=== PATIENT | female | born 1940 | race Asian ===

== ENCOUNTER 2021-03-13 10:55 | Observation (INO) | payer OTHER, MEDICAID ==
[2021-03-13 12:00] LABS: Hemoglobin 4.7 g/dL (12.0-16.0); Mean Corpuscular HGB CONC 31.3 g/dL (32.0-36.0); Mean Corpuscular Hemoglobin 28.8 pg (27.0-31.0); Mean Platelet Volume 6.3 fL (7.4-10.4); Platelet Count 67 thou/uL (130-400); RBC Distribution Width 20.8 % (11.5-14.5); Red Blood Cell (RBC) Count 1.65 mill/uL (4.20-5.40); White Blood Cell (WBC) Count 2.7 thou/uL (4.8-10.8)
[2021-03-13 12:12] LABS: ALT (SGPT) Less than 7 U/L (8-55); AST (SGOT) 15 U/L (5-34); Albumin 3.8 g/dL (3.4-4.8); Alkaline Phosphatase 63 U/L (40-110); Anion Gap 14 mmol/L (10-20); BUN (Urea Nitrogen) 39 mg/dL (9.8-20.1); Bilirubin, Total 0.7 mg/dL (0.2-1.2); Calc. Creatinine Clearance 0 mL/min (70-130); Calcium 9.2 mg/dL (7.8-10.44); Carbon Dioxide 23 mmol/L (23-31); Chloride 102 mmol/L (98-107); Globulin 3.2 g/dL (2.4-3.5); Glucose 157 mg/dL (83-110); Potassium 4.1 mmol/L (3.5-5.1); Sodium 135 mmol/L (136-145)
[2021-03-13 12:39] LABS: Anisocytosis MODERATE=16-30 cells (100X) (0-5/hpf); Band 9 % (5-11); Basophilic Stippling SLIGHT = 1-2 cells (100X) (None Seen); Differential Comment Blast-Like Cell(s); Eosinophils 1 % (0-10); Lymphocytes 34 % (21-51); MDiff Complete? YES; Metamyelocyte 9 % (0-0); Monocytes 7 % (0-10); Myelocyte 12 % (0-0); Neutrophil 26 % (42-75); Nucleated RBC 12 % (0); Ovalocytes SLIGHT = 2-5 cells (100X) (0-1/hpf); Platelet Morphology Comment Appears Decreased; Poikilocytosis SLIGHT = 6-15 cells (100X) (0-5/hpf); Polychromasia MODERATE = 3-4 cells (100X) (0-2/hpf); Promyelocytes 1 % (0-0); Reflex for Review?? YES; Schistocytes SLIGHT = 2-5 cells (100X) (0-1/hpf); Tear Drops SLIGHT = 2-5 cells (100X) (0-1/hpf)
[2021-03-13] MEDS ORDERED: Acetaminophen 325 MG TAB PO PRN (16:02)
[2021-03-13] MEDS ORDERED: Acetaminophen 650 MG Suppository PR PRN (16:02)
[2021-03-13] MEDS ORDERED: Ondansetron PF 4 MG/2 ML Vial IVP PRN (16:02)
[2021-03-13] MEDS ORDERED: Ondansetron ODT 4 MG TAB PO PRN (16:02)
[2021-03-13 16:21] VITALS: BMI 16.0
[2021-03-13] MEDS ORDERED: CARBIDOPA LEVO PO SCH (21:00)
[2021-03-14 06:33] LABS: Band 14 % (5-11); Differential Comment Blast-Like Cell(s); Hemoglobin 8.3 g/dL (12.0-16.0); Hypochromia SLIGHT = 6-15 cells (100X) (0-5/hpf); Lymphocytes 40 % (21-51); MDiff Complete? YES; Mean Corpuscular HGB CONC 33.1 g/dL (32.0-36.0); Mean Corpuscular Hemoglobin 31.2 pg (27.0-31.0); Mean Corpuscular Volume 94.1 fL (78.0-98.0); Metamyelocyte 3 % (0-0); Monocytes 7 % (0-10); Neutrophil 26 % (42-75); Nucleated RBC 7 % (0); Platelet Count 48 thou/uL (130-400); Platelet Morphology Comment Appears Decreased; Promyelocytes 6 % (0-0); Reactive Lymphocytes 1 % (0-10); Red Blood Cell (RBC) Count 2.65 mill/uL (4.20-5.40)
[2021-03-14 06:39] LABS: ALT (SGPT) Less than 7 U/L (8-55); AST (SGOT) 20 U/L (5-34); Albumin 3.3 g/dL (3.4-4.8); Alkaline Phosphatase 55 U/L (40-110); Anion Gap 14 mmol/L (10-20); BUN (Urea Nitrogen) 40 mg/dL (9.8-20.1); Bilirubin, Total 1.3 mg/dL (0.2-1.2); Calc. Creatinine Clearance 17 mL/min (70-130); Calcium 9.2 mg/dL (7.8-10.44); Carbon Dioxide 23 mmol/L (23-31); Chloride 106 mmol/L (98-107); Globulin 3.1 g/dL (2.4-3.5); Glucose 86 mg/dL (83-110); Potassium 4.7 mmol/L (3.5-5.1); Protein, Total 6.4 g/dL (5.8-8.1); Sodium 138 mmol/L (136-145)
[2021-03-14] MEDS ORDERED: ALPRAZolam 0.25 MG TAB PO SCH (09:00)
[2021-03-14] MEDS ORDERED: Famotidine 20 MG TAB PO SCH (09:00)
[2021-03-14 09:27] VITALS: TEMP 97.7
[2021-03-14 09:40] VITALS: BP 160/75
[2021-03-14 16:28] LABS: SARS-CoV-2 PCR by NAA Not Detected (NotDetected)
== END 2021-03-14 11:22 | disposition home or self-care (01) ==
LOC: ERS 10:55 → MSONC 13:14
PROVIDERS: ADMIT Student in an Organized Health Care Education/Training Program; ATTEND Student in an Organized Health Care Education/Training Program
DX: D61.818 Other pancytopenia (principal); C94.6 Myelodysplastic disease, not elsewhere classified; N17.9 Acute kidney failure, unspecified; G20 Parkinson's disease; K21.9 Gastro-esophageal reflux disease without esophagitis; I10 Essential (primary) hypertension; Z79.899 Other long term (current) drug therapy; Z20.822 Contact with and (suspected) exposure to COVID-19
CPT/HCPCS: 36430; 80053 ×2; 84484; 85025 ×2; 86850; 86900; 86901; 86920; 93005; 99285; G0378; P9016; U0003; U0005; 36415; 85060

== ENCOUNTER 2021-10-30 11:50 | Emergency (ER) | payer MEDICAID, OTHER ==
[2021-10-30 14:42] LABS: INR-International Normal Ratio 1.1; PTT 31.5 sec (22.9-36.1); Prothrombin Time 14.8 sec (12.0-14.7)
[2021-10-30 14:43] LABS: ALT (SGPT) Less than 7 U/L (8-55); AST (SGOT) 11 U/L (5-34); Alkaline Phosphatase 79 U/L (40-110); Anion Gap 15 mmol/L (10-20); BUN (Urea Nitrogen) 41 mg/dL (9.8-20.1); Bilirubin, Total 0.7 mg/dL (0.2-1.2); Calc. Creatinine Clearance 0 mL/min (70-130); Calcium 8.8 mg/dL (7.8-10.44); Carbon Dioxide 19 mmol/L (23-31); Chloride 104 mmol/L (98-107); Estimated GFR 31; Globulin 3.4 g/dL (2.4-3.5); Glucose 92 mg/dL (83-110); Potassium 5.2 mmol/L (3.5-5.1); Protein, Total 7.4 g/dL (5.8-8.1); Sodium 133 mmol/L (136-145)
[2021-10-30 21:13] LABS: Hemoglobin 8.3 g/dL (12.0-16.0)
== END 2021-10-30 21:49 | disposition home or self-care (01) ==
LOC: ERS 11:50
DX: D61.9 Aplastic anemia, unspecified (principal); D46.9 Myelodysplastic syndrome, unspecified; T50.905A Adverse effect of unspecified drugs, medicaments and biological substances, initial encounter
CPT/HCPCS: 36430; 80053; 85014; 85018; 85610; 85730; 86850; 86900; 86901; 86920; 99284; P9016; 36415